=== PATIENT | female | born 1950 | race Hispanic/Latino ===

== ENCOUNTER → 2018-06-29 | Outpatient (CLI) | payer OTHER | END | disposition home or self-care (01) | LOC: OIH 10:47 | PROVIDERS: ATTEND Internal Medicine | DX: I10 Essential (primary) hypertension (principal); I70.0 Atherosclerosis of aorta; M47.815 Spondylosis without myelopathy or radiculopathy, thoracolumbar region | CPT/HCPCS: 71046 ==

== ENCOUNTER 2021-11-04 19:34 | Inpatient (IN) | payer OTHER ==
[~2021-11-04] VITALS: Ht 165.1 cm; Wt 66.8 kg
[~2021-11-04 19:34] MED LIST: AEC81 PO; ATOR20TA PO; FURO20TA6 PO; INSLAN SQ; LEVO50TA11 PO; METO25TA6 PO; PRED10TA3 PO
[2021-11-04 20:35] LABS: HEMATOCRIT 25.9 % (36-48); MEAN CORPUSCULAR HEMOGLOBIN 31.6 pg (27.0-33.0); MEAN CORPUSCULAR HGB CONC 32.4 g/dL (32.0-36.0); MEAN CORPUSCULAR VOLUME 97.4 fL (79-99); NUCLEATED RED BLOOD CELLS 0.3 % (0.0-0.19); PLATELET COUNT (AUTO) 313 K/uL (130-400); RED BLOOD CELL COUNT(AUTO) 2.66 MIL/uL (4.00-5.50); RED CELL DISTRIBUTION WIDTH 17.5 % (11.0-15.5); WHITE BLOOD COUNT (AUTO) 18.3 K/uL (4.8-10.8)
[2021-11-04 20:40] LABS: BASOPHILS % (AUTO) 0.1 % (0.0-5.0); LYMPHOCYTES % (AUTO) 3.9 % (21.0-51.0); MONOCYTES % (AUTO) 4.6 % (3.0-13.0)
[2021-11-04 20:49] LABS: ALBUMIN 1.5 g/dL (3.5-5.0); BILIRUBIN,TOTAL 0.7 mg/dL (0.2-1.0); CREATININE 2.1 mg/dL (0.5-1.5); POTASSIUM 4.5 mmol/L (3.5-5.1); TOTAL PROTEIN, SERUM 6.2 g/dL (6.0-8.3)
[2021-11-04 20:52] LABS: B-TYPE NATRIURETIC PEPTIDE 4140 pg/mL (0-100)
[2021-11-04] MEDS ORDERED: INSULIN HUMULIN R 100 UNIT/ML 3ML SQ ONE (21:30)
[2021-11-04] MEDS ORDERED: FUROSEMIDE 40MG VIAL IV ONE (21:30)
[2021-11-04] MEDS ORDERED: ZOSYN 3.375GM+NS 50ML 50 ML ONE (23:23)
[2021-11-04] MEDS ORDERED: FUROSEMIDE 40MG VIAL ONE ×2 (23:23→23:38)
[2021-11-05] MEDS ORDERED: ACYC400T20 PO (01:14)
[2021-11-05] MEDS ORDERED: [UNRECOGNIZED DRUG - CODE] MC ×2 (01:14→01:37)
[2021-11-05] MEDS ORDERED: CHOL100046 PO (01:37)
[2021-11-05] MEDS ORDERED: MAGN500C4 PO (01:37)
[2021-11-05] MEDS ORDERED: CALC-190 PO (01:37)
[2021-11-05] MEDS ORDERED: LORA10TA7 PO (01:37)
[2021-11-05] MEDS ORDERED: SULF1TAB42 PO (01:37)
[2021-11-05] MEDS ORDERED: FLUC200T12 PO (01:37)
[2021-11-05] MEDS ORDERED: RUXO10TA PO (01:37)
[2021-11-05] MEDS ORDERED: ESCI-8 PO (01:37)
[2021-11-05] MEDS ORDERED: PRED10TA23 PO (01:37)
[2021-11-05] MEDS ORDERED: FURO40TA5 PO (01:37)
[2021-11-05] MEDS ORDERED: ATOR40TA71 PO (01:37)
[2021-11-05] MEDS ORDERED: LEVO50CA4 PO (01:37)
[2021-11-05] MEDS ORDERED: POTA-202 PO (01:37)
[2021-11-05] MEDS ORDERED: DOXY50CA2 PO (01:37)
[2021-11-05] MEDS ORDERED: ACET-66 PO (01:37)
[2021-11-05] MEDS ORDERED: PANT40TA54 PO (01:37)
[2021-11-05] MEDS ORDERED: DOCU-280 PO (01:37)
[2021-11-05] MEDS ORDERED: CLONIDINE HCL 0.1 MG TABLET ONE (02:20)
[2021-11-05] MEDS: CLONIDINE HCL 0.1 MG TABLET PO PRN ×3 (02:40→17:19)
[2021-11-05 03:24] VITALS: BP 217/100
[2021-11-05] MEDS ORDERED: FUROSEMIDE 40MG VIAL IV SCH ×2 (04:15→04:45)
[2021-11-05] MEDS ORDERED: PHARMACY COMMUNICATION MISC SCH ×2 (06:30→08:00)
[2021-11-05] MEDS ORDERED: TACR0.5C12 PO (06:48)
[2021-11-05 06:50] LABS: ALBUMIN 1.6 g/dL (3.5-5.0); BILIRUBIN,TOTAL 0.7 mg/dL (0.2-1.0); CREATININE 1.9 mg/dL (0.5-1.5); POTASSIUM 5.1 mmol/L (3.5-5.1); TOTAL PROTEIN, SERUM 6.5 g/dL (6.0-8.3)
[2021-11-05] MEDS ORDERED: LORATADINE 10 MG TABLET PO PRN (07:00)
[2021-11-05] MEDS ORDERED: INSLAN SQ (07:10)
[2021-11-05] MEDS ORDERED: CITA-107 PO (07:18)
[2021-11-05 07:19] LABS: BASOPHILS % (AUTO) 0.2 % (0.0-5.0); HEMATOCRIT 27.7 % (36-48); LYMPHOCYTES % (AUTO) 7.2 % (21.0-51.0); MEAN CORPUSCULAR HEMOGLOBIN 31.9 pg (27.0-33.0); MEAN CORPUSCULAR HGB CONC 32.5 g/dL (32.0-36.0); MEAN CORPUSCULAR VOLUME 98.2 fL (79-99); MONOCYTES % (AUTO) 6.8 % (3.0-13.0); NEUTROPHILS % (AUTO) 84.4 % (40.0-77.0); NUCLEATED RED BLOOD CELLS 0.3 % (0.0-0.19); PLATELET COUNT (AUTO) 334 K/uL (130-400); RED BLOOD CELL COUNT(AUTO) 2.82 MIL/uL (4.00-5.50); RED CELL DISTRIBUTION WIDTH 17.5 % (11.0-15.5); WHITE BLOOD COUNT (AUTO) 19.4 K/uL (4.8-10.8)
[2021-11-05] MEDS ORDERED: IPRA3AMP24 IH (07:26)
[2021-11-05] MEDS: FUROSEMIDE 40MG VIAL IV SCH ×2 (07:53→20:49)
[2021-11-05 08:00] VITALS: BP 204/104
[2021-11-05] MEDS: MENTHOL TP SCH ×2 (08:00→16:00)
[2021-11-05] MEDS: INSULIN GLARGINE 100 UNITS/ML 10 ML VIAL SQ SCH ×2 (08:46→21:01)
[2021-11-05] MEDS: ACYCLOVIR 200 MG CAPSULE PO SCH ×2 (08:52→20:49)
[2021-11-05] MEDS: ASPIRIN 81 MG EC TAB PO SCH (08:53)
[2021-11-05] MEDS: CITALOPRAM 20 MG TABLET PO SCH (08:53)
[2021-11-05] MEDS: LEVOTHYROXINE 50 MCG TABLET PO SCH (08:53)
[2021-11-05] MEDS: FLUCONAZOLE 100 MG TAB PO SCH (08:53)
[2021-11-05] MEDS: PREDNISONE 20 MG TABLET PO SCH (08:53)
[2021-11-05] MEDS: HONEY 1 APPL/ML TUBE TP SCH (08:54)
[2021-11-05] MEDS ORDERED: METOPROLOL TARTRATE 25 MG TAB PO SCH (09:00)
[2021-11-05] MEDS: TACROLIMUS 0.5 MG CAPSULE PO SCH ×2 (09:27→20:54)
[2021-11-05] MEDS: JAKAFI 5 MG PO SCH ×2 (09:28→20:52)
[2021-11-05 12:00] VITALS: BP 182/99
[2021-11-05] MEDS: AMLODIPINE 5 MG TAB PO SCH (12:35)
[2021-11-05] MEDS ORDERED: [UNRECOGNIZED DRUG - REMARK] MISC SCH (13:00)
[2021-11-05] MEDS: INSULIN R PO SS1 SQ SCH ×3 (13:03→22:36)
[2021-11-05] MEDS ORDERED: MENTHOL TP (14:30)
[2021-11-05] MEDS ORDERED: 0.9%NACL 50ML 50 ML IV ONE (15:56)
[2021-11-05 16:00] VITALS: BP 178/84
[2021-11-05] MEDS: ZOSYN 3.375GM +NS 50ML IVPB SCH (16:06)
[2021-11-05 16:56] LABS: APPEARANCE,URINE CLOUDY (CLEAR); BILIRUBIN,URINE NEGATIVE (NEGATIVE); COLOR,URINE YELLOW (YELLOW); GLUCOSE, URINE (UA) 500 mg/dL (NEGATIVE); KETONES,URINE NEGATIVE (NEGATIVE); LEUKOCYTE ESTERASE ,URINE LARGE (NEGATIVE); NITRATE,URINE NEGATIVE (NEGATIVE); OCCULT BLOOD,URINE MODERATE (NEGATIVE); PROTEIN,URINE NEGATIVE (NEGATIVE); UROBILINOGEN,URINE 0.2 mg/dL (0.2-1.0)
[2021-11-05 17:24] LABS: YEAST,URINE BUDDING Moderate /HPF (None Seen)
[2021-11-05 17:25] LABS: BACTERIA,URINE Few /HPF (None Seen); SQUAMOUS EPITHELIAL CELL,UR Rare /HPF (0-2)
[2021-11-05 19:12] VITALS: BP 154/76
[2021-11-05] MEDS: CARVEDILOL 3.125 MG TABLET PO SCH (20:49)
[2021-11-05] MEDS: ATORVASTATIN 40 MG TABLET PO SCH (20:49)
[2021-11-06] VITALS (7 sets, daily range): BP systolic 145–167; BP diastolic 65–94
[2021-11-06] MEDS: MENTHOL TP SCH
[2021-11-06] MEDS: ZOSYN 3.375GM +NS 50ML IVPB SCH ×2 (02:17→16:27)
[2021-11-06 05:01] LABS: HEMATOCRIT 26.6 % (36-48); MEAN CORPUSCULAR HEMOGLOBIN 32.5 pg (27.0-33.0); MEAN CORPUSCULAR HGB CONC 33.8 g/dL (32.0-36.0); NUCLEATED RED BLOOD CELLS 0.3 % (0.0-0.19); RED BLOOD CELL COUNT(AUTO) 2.77 MIL/uL (4.00-5.50); RED CELL DISTRIBUTION WIDTH 17.1 % (11.0-15.5); WHITE BLOOD COUNT (AUTO) 17.6 K/uL (4.8-10.8)
[2021-11-06 05:29] LABS: ALBUMIN 1.6 g/dL (3.5-5.0); BILIRUBIN,TOTAL 0.6 mg/dL (0.2-1.0); CREATININE 1.8 mg/dL (0.5-1.5); MAGNESIUM 1.5 mg/dL (1.80-2.40); PHOSPHORUS 3.8 mg/dL (2.5-4.9); POTASSIUM 3.7 mmol/L (3.5-5.1); THYROID STIMULATING HORMONE 1.22 uIU/mL (0.36-3.74); TOTAL PROTEIN, SERUM 6.1 g/dL (6.0-8.3); URIC ACID 4.6 mg/dL (2.6-7.2)
[2021-11-06 05:44] LABS: % IRON SATURATION 43.1 % (22-44)
[2021-11-06] MEDS ORDERED: MAGNESIUM 2GM PREMIX 50ML 50 ML IV PRN (07:00)
[2021-11-06] MEDS: JAKAFI 5 MG PO SCH ×2 (09:00→20:43)
[2021-11-06] MEDS ORDERED: FUROSEMIDE 40 MG TABLET PO SCH (09:00)
[2021-11-06] MEDS: INSULIN R PO SS1 SQ SCH ×4 (09:27→20:29)
[2021-11-06] MEDS: INSULIN GLARGINE 100 UNITS/ML 10 ML VIAL SQ SCH ×2 (09:27→20:30)
[2021-11-06] MEDS: ACYCLOVIR 200 MG CAPSULE PO SCH ×2 (09:30→20:25)
[2021-11-06] MEDS: CITALOPRAM 20 MG TABLET PO SCH (09:30)
[2021-11-06] MEDS: ASPIRIN 81 MG EC TAB PO SCH (09:30)
[2021-11-06] MEDS: FLUCONAZOLE 100 MG TAB PO SCH (09:30)
[2021-11-06] MEDS: LEVOTHYROXINE 50 MCG TABLET PO SCH (09:30)
[2021-11-06] MEDS: Vitamin B Complex/Vit C/Folic Acid PO SCH (09:31)
[2021-11-06] MEDS: TACROLIMUS 0.5 MG CAPSULE PO SCH ×2 (09:31→20:24)
[2021-11-06] MEDS: AMLODIPINE 5 MG TAB PO SCH (09:31)
[2021-11-06] MEDS: CARVEDILOL 3.125 MG TABLET PO SCH ×2 (09:31→20:26)
[2021-11-06] MEDS: FUROSEMIDE 40MG VIAL IV SCH ×2 (09:32→20:27)
[2021-11-06] MEDS: PREDNISONE 20 MG TABLET PO SCH (09:32)
[2021-11-06] MEDS: HONEY 1 APPL/ML TUBE TP SCH (09:49)
[2021-11-06] MEDS: ATORVASTATIN 40 MG TABLET PO SCH (20:26)
[2021-11-07] MEDS: ZOSYN 3.375GM +NS 50ML IVPB SCH ×2 (01:53→14:03)
[2021-11-07 03:52] VITALS: BP 148/78
[2021-11-07] MEDS: INSULIN R PO SS1 SQ SCH ×3 (06:46→17:22)
[2021-11-07] MEDS: INSULIN GLARGINE 100 UNITS/ML 10 ML VIAL SQ SCH (06:47)
[2021-11-07 08:20] VITALS: BP 160/68
[2021-11-07] MEDS: ASPIRIN 81 MG EC TAB PO SCH (08:43)
[2021-11-07] MEDS: TACROLIMUS 0.5 MG CAPSULE PO SCH (08:43)
[2021-11-07] MEDS: CARVEDILOL 3.125 MG TABLET PO SCH (08:43)
[2021-11-07] MEDS: PREDNISONE 20 MG TABLET PO SCH (08:44)
[2021-11-07] MEDS: ACYCLOVIR 200 MG CAPSULE PO SCH (08:44)
[2021-11-07] MEDS: Vitamin B Complex/Vit C/Folic Acid PO SCH (08:44)
[2021-11-07] MEDS: CITALOPRAM 20 MG TABLET PO SCH (08:44)
[2021-11-07] MEDS: FLUCONAZOLE 100 MG TAB PO SCH (08:44)
[2021-11-07] MEDS: AMLODIPINE 5 MG TAB PO SCH (08:44)
[2021-11-07] MEDS: LEVOTHYROXINE 50 MCG TABLET PO SCH (08:44)
[2021-11-07] MEDS: HONEY 1 APPL/ML TUBE TP SCH (08:45)
[2021-11-07] MEDS: FUROSEMIDE 40MG VIAL IV SCH (08:46)
[2021-11-07] MEDS: JAKAFI 5 MG PO SCH (08:46)
[2021-11-07] MEDS: MENTHOL TP SCH (08:47)
[2021-11-07 09:17] LABS: CREATININE 1.8 mg/dL (0.5-1.5); POTASSIUM 4.2 mmol/L (3.5-5.1)
[2021-11-07 12:35] VITALS: BP 175/76
[2021-11-07 16:31] VITALS: BP 141/74
== END 2021-11-07 20:30 | DRG 871 ==
LOC: EDH 19:34 → EDHIP 22:00 → 2AH 11-05 02:59
PROVIDERS: ADMIT Internal Medicine; ATTEND Internal Medicine
PROC: 5A09357 Assistance with Respiratory Ventilation, Less than 24 Consecutive Hours, Continuous Positive Airway Pressure (ICD-10-PCS; principal; 2021-11-05)
DX: A41.9 Sepsis, unspecified organism (principal); I50.43 Acute on chronic combined systolic (congestive) and diastolic (congestive) heart failure; J96.21 Acute and chronic respiratory failure with hypoxia; J11.00 Influenza due to unidentified influenza virus with unspecified type of pneumonia; I13.0 Hypertensive heart and chronic kidney disease with heart failure and stage 1 through stage 4 chronic kidney disease, or unspecified chronic kidney disease; N17.9 Acute kidney failure, unspecified; C95.90 Leukemia, unspecified not having achieved remission; D84.9 Immunodeficiency, unspecified; N13.6 Pyonephrosis; N39.0 Urinary tract infection, site not specified; Z16.12 Extended spectrum beta lactamase (ESBL) resistance; Z94.81 Bone marrow transplant status; Z20.822 Contact with and (suspected) exposure to COVID-19; I44.7 Left bundle-branch block, unspecified; I16.0 Hypertensive urgency; E11.65 Type 2 diabetes mellitus with hyperglycemia; E11.22 Type 2 diabetes mellitus with diabetic chronic kidney disease; C50.919 Malignant neoplasm of unspecified site of unspecified female breast; E03.9 Hypothyroidism, unspecified; N18.9 Chronic kidney disease, unspecified; E87.6 Hypokalemia; E78.5 Hyperlipidemia, unspecified; I45.4 Nonspecific intraventricular block; K52.9 Noninfective gastroenteritis and colitis, unspecified; R79.89 Other specified abnormal findings of blood chemistry
CPT/HCPCS: 36415; 71045; 71250; 76770; 80048; 80053; 81001; 82550; 82728; 82948; 83540; 83550; 83605; 83735; 83874; 83880; 84100; 84443; 84484; 84550; 85025; 85027; 85378; 87040; 87077; 87088; 87186; 87635; 93005; 93306; 93356; 93971; 94660; 99291; G0378; J1815; J1940; J2543; J3475; J7507

== ENCOUNTER 2022-01-07 17:36 | Inpatient (IN) | payer OTHER ==
[~2022-01-07] VITALS: Ht 157.5 cm; Wt 59.4 kg
[~2022-01-07 17:36] MED LIST changes: +ACET-66 PO; +ACYC400T20 PO; -ATOR20TA PO; +ATOR40TA71 PO; +CACL 1GM SYG IVP ONE; +CALC-190 PO; +CHOL100046 PO; +CITA-107 PO; +DOCU-280 PO; +DOXY50CA2 PO; +FLUC200T12 PO; +FURO40TA5 PO; +IPRA3AMP24 IH; +LEVO50CA4 PO; -LEVO50TA11 PO; +LORA10TA7 PO; +MAGN500C4 PO; -METO25TA6 PO; +PANT40TA54 PO; +POTA-202 PO; +PRED10TA23 PO; -PRED10TA3 PO; +RUXO10TA PO; +SULF1TAB42 PO; +TACR0.5C12 PO
[2022-01-07 17:53] LABS: ABG BASE EXCESS -3.9 mmol/L (-2.0-3.0); ABG HCO3 21.7 mmol/L (21.0-28.0); ABG OXYGEN SATURATION 99.5 % (95.0-99.0); ABG PCO2 42 mmHg (32-45)
[2022-01-07] MEDS ORDERED: CALCIUM GLUC 1GM/10ML VIAL ONE (17:59)
[2022-01-07] MEDS ORDERED: CALCIUM GLUC 1GM 1 GM in 0.9%NACL 100ML 100 ML IV ONE (18:00)
[2022-01-07] MEDS ORDERED: 0.9% NACL 500ML IV.SOLN 500 ML IV ONE (18:00)
[2022-01-07] MEDS ORDERED: INSULIN HUMULIN R 100 UNIT/ML 3ML IV ONE (18:00)
[2022-01-07] MEDS ORDERED: NA ZIRCON CYCLOSIL(LOKELMA 10GM) PO ONE ×2 (18:00→23:00)
[2022-01-07 18:11] LABS: BASOPHILS % (AUTO) 0.1 % (0.0-5.0); MEAN CORPUSCULAR HEMOGLOBIN 32.3 pg (27.0-33.0); MEAN CORPUSCULAR HGB CONC 32.6 g/dL (32.0-36.0); MONOCYTES % (AUTO) 4.6 % (3.0-13.0); NEUTROPHILS % (AUTO) 90.4 % (40.0-77.0); NUCLEATED RED BLOOD CELLS 0.5 % (0.0-0.19); PLATELET COUNT (AUTO) 65 K/uL (130-400); RED BLOOD CELL COUNT(AUTO) 1.92 MIL/uL (4.00-5.50); RED CELL DISTRIBUTION WIDTH 21.7 % (11.0-15.5); WHITE BLOOD COUNT (AUTO) 15.2 K/uL (4.8-10.8)
[2022-01-07 18:33] LABS: ALBUMIN 1.5 g/dL (3.5-5.0); CREATININE 5.9 mg/dL (0.5-1.5); MAGNESIUM 4.2 mg/dL (1.80-2.40); PHOSPHORUS 8.8 mg/dL (2.5-4.9); TOTAL PROTEIN, SERUM 5.7 g/dL (6.0-8.3)
[2022-01-07 18:38] LABS: POTASSIUM 8.1 mmol/L (3.5-5.1)
[2022-01-07 18:53] LABS: B-TYPE NATRIURETIC PEPTIDE 3550 pg/mL (0-100)
[2022-01-07] MEDS ORDERED: 0.9%NACL 1000ML 1,000 ML IV ONE (19:00)
[2022-01-07] MEDS: MEROPENEM 1 GM VIAL IVP SCH (19:20)
[2022-01-07 19:31] LABS: APPEARANCE,URINE TURBID (CLEAR); BILIRUBIN,URINE SMALL (NEGATIVE); COLOR,URINE Amber (YELLOW); GLUCOSE, URINE (UA) 250 mg/dL (NEGATIVE); KETONES,URINE NEGATIVE (NEGATIVE); LEUKOCYTE ESTERASE ,URINE LARGE (NEGATIVE); NITRATE,URINE NEGATIVE (NEGATIVE); OCCULT BLOOD,URINE LARGE (NEGATIVE); PROTEIN,URINE 100 mg/dL (NEGATIVE); UROBILINOGEN,URINE 0.2 mg/dL (0.2-1.0)
[2022-01-07 19:35] LABS: BACTERIA,URINE Many /HPF (None Seen); RBC,URINE >100 /HPF (0-1); SQUAMOUS EPITHELIAL CELL,UR None Seen /HPF (0-2); WBC,URINE >100 /HPF (0-1)
[2022-01-07 19:43] LABS: CHLORIDE,URINE RANDOM 68 mmol/L (110-250); CREATININE,URINE RANDOM 27 mg/dL (30-135); POTASSIUM,URINE RANDOM 32 mmol/L (25-125); SODIUM,URINE RANDOM 81 mmol/l (40-220)
[2022-01-07] MEDS ORDERED: PRED50TA2 PO (21:38)
[2022-01-07] MEDS ORDERED: ONDA4TAB10 PO (21:38)
[2022-01-07] MEDS ORDERED: FOLI1TAB85 PO (21:38)
[2022-01-07] MEDS ORDERED: AMLO-257 PO (21:38)
[2022-01-07] MEDS ORDERED: ESCI-8 PO (21:38)
[2022-01-07] MEDS ORDERED: CARV3.12 PO (21:38)
[2022-01-07] MEDS ORDERED: KAYEXALATE 15GM/60ML PO ONE (22:00)
[2022-01-07] MEDS ORDERED: ALBUTEROL 0.083% 2.5 MG/3 ML INH IH ONE ×3 (22:00→22:30)
[2022-01-07] MEDS ORDERED: SODIUM BICARB 50MEQ 50ML VIAL IV ONE (22:00)
[2022-01-07 22:15] LABS: CREATININE 5.5 mg/dL (0.5-1.5)
[2022-01-07 22:27] LABS: POTASSIUM 6.9 mmol/L (3.5-5.1)
[2022-01-07] MEDS ORDERED: CALCIUM GLUC 1GM 1 GM in 0.9%NACL 100ML 100 ML IV SCH (22:30)
[2022-01-08] VITALS (36 sets, daily range): BP systolic 76–150; BP diastolic 28–93
[2022-01-08] MEDS ORDERED: NOREPINEPHRIN 4MG/NS 250ML 250 ML IV ONE (00:15)
[2022-01-08] MEDS: NOREPINEPHRIN 4MG/NS 250ML 250 ML IV SCH ×2 (00:25→11:13)
[2022-01-08 04:05] LABS: CREATININE 5.6 mg/dL (0.5-1.5)
[2022-01-08 04:07] LABS: POTASSIUM 7.4 mmol/L (3.5-5.1)
[2022-01-08] MEDS ORDERED: NA ZIRCON CYCLOSIL(LOKELMA 10GM) PO ONE (05:00)
[2022-01-08 07:59] LABS: CREATININE 5.7 mg/dL (0.5-1.5)
[2022-01-08 08:09] LABS: POTASSIUM 7.7 mmol/L (3.5-5.1)
[2022-01-08] MEDS ORDERED: DEXTROSE 50%-WATER 50 ML DISP.SYRIN IV ONE ×2 (09:00→20:30)
[2022-01-08] MEDS ORDERED: ONDANSETRON 4MG INJ IVP PRN (09:00)
[2022-01-08] MEDS ORDERED: INSULIN HUMULIN R 100 UNIT/ML 3ML IV ONE ×2 (09:00→20:30)
[2022-01-08] MEDS ORDERED: KAYEXALATE 15GM/60ML PO PRN (09:00)
[2022-01-08] MEDS ORDERED: ACETAMINOPHEN 325 MG TAB PO PRN (09:00)
[2022-01-08] MEDS ORDERED: HYDRALAZINE 20MG/ML VIAL IV PRN (09:00)
[2022-01-08] MEDS ORDERED: SODIUM BICARBONATE 650 MG TAB PO PRN (09:00)
[2022-01-08] MEDS ORDERED: LABETALOL 20MG SYG IV PRN (09:00)
[2022-01-08] MEDS ORDERED: SODIUM BICARB 50MEQ 50ML VIAL IV SCH (09:00)
[2022-01-08] MEDS ORDERED: ALBUTEROL 0.083% 2.5 MG/3 ML INH IH PRN (09:00)
[2022-01-08] MEDS ORDERED: KAYEXALATE 15GM/60ML PO ONE (09:00)
[2022-01-08 11:13] LABS: CREATININE 5.9 mg/dL (0.5-1.5)
[2022-01-08 11:17] LABS: POTASSIUM 6.6 mmol/L (3.5-5.1)
[2022-01-08] MEDS: INSULIN HUMULIN R 100 UNIT/ML 3ML SQ SCH ×2 (11:17→17:12)
[2022-01-08 12:18] LABS: MEAN CORPUSCULAR HGB CONC 31.5 g/dL (32.0-36.0); MEAN CORPUSCULAR VOLUME 101.7 fL (79-99); NUCLEATED RED BLOOD CELLS 0.6 % (0.0-0.19); PLATELET COUNT (AUTO) 60 K/uL (130-400); RED BLOOD CELL COUNT(AUTO) 1.81 MIL/uL (4.00-5.50); WHITE BLOOD COUNT (AUTO) 14.1 K/uL (4.8-10.8)
[2022-01-08 12:39] LABS: HEMATOCRIT 18.4 % (36-48)
[2022-01-08] MEDS: SODIUM BICARBONATE 650 MG TAB PO SCH ×2 (13:08→20:34)
[2022-01-08] MEDS ORDERED: NA ZIRCON CYCLOSIL(LOKELMA 10GM) PO SCH (13:30)
[2022-01-08 13:37] LABS: BAND NEUTROPHILS % (MANUAL) 9 % (0-2); LYMPHOCYTES % (MANUAL) 4 % (22-44); MAN.DIFF COMMENT-IMPRESSION MANUAL DIFFERENTIAL; MONOCYTES % (MANUAL) 3 % (2-9); SEGMENTED NEUTROPHILS % 84 % (40-70)
[2022-01-08 13:38] LABS: PLATELET MORPHOLOGY COMMENT DECREASED
[2022-01-08] MEDS ORDERED: HYDROCORTISONE SOD SUCCINATE 100 MG/2 ML VIAL IV SCH (14:00)
[2022-01-08] MEDS ORDERED: PHARMACY COMMUNICATION MISC SCH (14:00)
[2022-01-08] MEDS ORDERED: SODIUM CHLORIDE 7% INHALATION 4 ML VIAL.NEB IH ONE ×2 (14:39→18:16)
[2022-01-08] MEDS: 0.9%NACL 1000ML 1,000 ML IV SCH (14:47)
[2022-01-08 15:40] LABS: CREATININE 5.7 mg/dL (0.5-1.5)
[2022-01-08 15:42] LABS: POTASSIUM 6.7 mmol/L (3.5-5.1)
[2022-01-08] MEDS: SODIUM BICARB 50MEQ 50ML VIAL 150 MEQ in DEXTROSE 5%-WATER 1,000 ML IV SCH (17:12)
[2022-01-08 19:13] LABS: HEMATOCRIT 15.7 % (36-48)
[2022-01-08 19:35] LABS: CREATININE 5.7 mg/dL (0.5-1.5)
[2022-01-08 19:37] LABS: POTASSIUM 6.4 mmol/L (3.5-5.1)
[2022-01-08] MEDS: MEROPENEM 1 GM VIAL IVP SCH (19:55)
[2022-01-08] MEDS ORDERED: ALBUTEROL 0.083% 2.5 MG/3 ML INH IH ONE (20:30)
[2022-01-08] MEDS ORDERED: FUROSEMIDE 40MG VIAL IV ONE (20:30)
[2022-01-08] MEDS ORDERED: CALCIUM GLUC 1GM/10ML VIAL IV ONE (20:30)
[2022-01-08] MEDS: HYDROCORTISONE SOD SUCCINATE 100 MG/2 ML VIAL IV SCH (20:38)
[2022-01-08 22:15] LABS: ABG BASE EXCESS -1.1 mmol/L (-2.0-3.0); ABG HCO3 23.5 mmol/L (21.0-28.0); ABG OXYGEN SATURATION 98.6 % (95.0-99.0); ABG PCO2 38 mmHg (32-45)
[2022-01-08] MEDS ORDERED: DOPAMINE HCL 400 MG/D5%-WATER 250 ML IV STA (22:24)
[2022-01-08] MEDS ORDERED: INSULIN HUMULIN R 100 UNIT/ML 3ML SQ ONE (22:50)
[2022-01-08 23:12] LABS: CREATININE 5.6 mg/dL (0.5-1.5); POTASSIUM 5.9 mmol/L (3.5-5.1)
[2022-01-08] MEDS: LACTULOSE 20 GM/30 ML UDCUP PO PRN (23:44)
[2022-01-09] VITALS (91 sets, daily range): BP systolic 94–167; BP diastolic 29–91
[2022-01-09] MEDS: HYDROCORTISONE SOD SUCCINATE 100 MG/2 ML VIAL IV SCH ×4 (01:11→16:55)
[2022-01-09] MEDS: INSULIN HUMULIN R 100 UNIT/ML 3ML SQ SCH ×4 (01:15→16:56)
[2022-01-09 02:11] LABS: HEMATOCRIT 25.4 % (36-48); MEAN CORPUSCULAR HEMOGLOBIN 33.3 pg (27.0-33.0); MEAN CORPUSCULAR HGB CONC 33.5 g/dL (32.0-36.0); MEAN CORPUSCULAR VOLUME 99.6 fL (79-99); NUCLEATED RED BLOOD CELLS 0.5 % (0.0-0.19); PLATELET COUNT (AUTO) 66 K/uL (130-400); RED BLOOD CELL COUNT(AUTO) 2.55 MIL/uL (4.00-5.50); RED CELL DISTRIBUTION WIDTH 16.9 % (11.0-15.5); WHITE BLOOD COUNT (AUTO) 14.5 K/uL (4.8-10.8)
[2022-01-09] MEDS ORDERED: SODIUM CHLORIDE 7% INHALATION 4 ML VIAL.NEB IH ONE (02:16)
[2022-01-09 02:17] LABS: CREATININE 5.4 mg/dL (0.5-1.5); POTASSIUM 5.8 mmol/L (3.5-5.1)
[2022-01-09 05:53] LABS: BASOPHILS % (AUTO) 0.3 % (0.0-5.0); HEMATOCRIT 22.8 % (36-48); LYMPHOCYTES % (AUTO) 2.6 % (21.0-51.0); MEAN CORPUSCULAR HEMOGLOBIN 33.3 pg (27.0-33.0); MEAN CORPUSCULAR HGB CONC 34.2 g/dL (32.0-36.0); MEAN CORPUSCULAR VOLUME 97.4 fL (79-99); MONOCYTES % (AUTO) 1.7 % (3.0-13.0); NEUTROPHILS % (AUTO) 94.4 % (40.0-77.0); NUCLEATED RED BLOOD CELLS 0.4 % (0.0-0.19); PLATELET COUNT (AUTO) 53 K/uL (130-400); RED BLOOD CELL COUNT(AUTO) 2.34 MIL/uL (4.00-5.50); WHITE BLOOD COUNT (AUTO) 15.1 K/uL (4.8-10.8)
[2022-01-09] MEDS: LACTULOSE 20 GM/30 ML UDCUP PO PRN (06:10)
[2022-01-09 06:19] LABS: ALBUMIN 1.6 g/dL (3.5-5.0); CREATININE 5.3 mg/dL (0.5-1.5); MAGNESIUM 3.4 mg/dL (1.80-2.40); PHOSPHORUS 7.1 mg/dL (2.5-4.9); POTASSIUM 5.1 mmol/L (3.5-5.1); THYROID STIMULATING HORMONE 0.25 uIU/mL (0.36-3.74); TOTAL PROTEIN, SERUM 5.3 g/dL (6.0-8.3)
[2022-01-09 07:01] LABS: ABG BASE EXCESS 1.5 mmol/L (-2.0-3.0); ABG HCO3 26.3 mmol/L (21.0-28.0); ABG OXYGEN SATURATION 98.6 % (95.0-99.0); ABG PCO2 42 mmHg (32-45)
[2022-01-09] MEDS: PANTOPRAZOLE 40 MG/VIAL IVP SCH (08:02)
[2022-01-09] MEDS: SODIUM BICARB 50MEQ 50ML VIAL 150 MEQ in DEXTROSE 5%-WATER 1,000 ML IV SCH (08:02)
[2022-01-09] MEDS: LACTULOSE 20 GM/30 ML UDCUP PO SCH ×3 (08:02→19:56)
[2022-01-09] MEDS: SODIUM BICARBONATE 650 MG TAB PO SCH ×2 (08:03→19:56)
[2022-01-09] MEDS: 0.9%NACL 1000ML 1,000 ML IV SCH (08:06)
[2022-01-09 11:04] LABS: HEMATOCRIT 22.2 % (36-48)
[2022-01-09 11:13] LABS: CREATININE 5.5 mg/dL (0.5-1.5); POTASSIUM 4.5 mmol/L (3.5-5.1)
[2022-01-09 18:54] LABS: HEMATOCRIT 25.3 % (36-48)
[2022-01-09 19:05] LABS: CREATININE 5.3 mg/dL (0.5-1.5); POTASSIUM 3.5 mmol/L (3.5-5.1)
[2022-01-09] MEDS: MEROPENEM 1 GM VIAL IVP SCH (19:56)
[2022-01-09] MEDS ORDERED: HYDROMORPHONE 0.5 MG SYG (0.5MG/0.5ML) IVP PRN (21:30)
[2022-01-09] MEDS: HYDROMORPHONE 0.5 MG SYG (0.5MG/0.5ML) IVP PRN (21:44)
[2022-01-09 23:14] LABS: HEMATOCRIT 24.9 % (36-48)
[2022-01-09 23:21] LABS: CREATININE 5.2 mg/dL (0.5-1.5); POTASSIUM 3.4 mmol/L (3.5-5.1)
[2022-01-10] VITALS (49 sets, daily range): BP systolic 94–181; BP diastolic 43–111
[2022-01-10] MEDS: HYDROCORTISONE SOD SUCCINATE 100 MG/2 ML VIAL IV SCH ×4 (00:33→17:42)
[2022-01-10] MEDS: INSULIN HUMULIN R 100 UNIT/ML 3ML SQ SCH ×4 (00:35→17:46)
[2022-01-10] MEDS: LACTULOSE 20 GM/30 ML UDCUP PO SCH ×4 (01:11→20:12)
[2022-01-10] MEDS: 0.9%NACL 1000ML 1,000 ML IV SCH (02:47)
[2022-01-10] MEDS: HYDROMORPHONE 0.5 MG SYG (0.5MG/0.5ML) IVP PRN (05:23)
[2022-01-10 06:06] LABS: BASOPHILS % (AUTO) 0.2 % (0.0-5.0); EOSINOPHILS % (AUTO) 0.3 % (0.0-8.0); HEMATOCRIT 26.9 % (36-48); LYMPHOCYTES % (AUTO) 2.6 % (21.0-51.0); MEAN CORPUSCULAR HEMOGLOBIN 33.5 pg (27.0-33.0); MEAN CORPUSCULAR HGB CONC 33.8 g/dL (32.0-36.0); MEAN CORPUSCULAR VOLUME 98.9 fL (79-99); NEUTROPHILS % (AUTO) 93.7 % (40.0-77.0); NUCLEATED RED BLOOD CELLS 0.2 % (0.0-0.19); PLATELET COUNT (AUTO) 36 K/uL (130-400); RED BLOOD CELL COUNT(AUTO) 2.72 MIL/uL (4.00-5.50); RED CELL DISTRIBUTION WIDTH 18.3 % (11.0-15.5); WHITE BLOOD COUNT (AUTO) 18.2 K/uL (4.8-10.8)
[2022-01-10 06:19] LABS: INR 1.02 (0.85-1.15); PROTHROMBIN TIME 11.1 SEC (9.6-11.6)
[2022-01-10 06:32] LABS: ALBUMIN 1.7 g/dL (3.5-5.0); CREATININE 5.2 mg/dL (0.5-1.5); POTASSIUM 3.4 mmol/L (3.5-5.1); TOTAL PROTEIN, SERUM 5.4 g/dL (6.0-8.3)
[2022-01-10] MEDS: NALOXONE HCL 0.4 MG/1 ML ML IVP PRN ×4 (08:30→15:41)
[2022-01-10] MEDS: PANTOPRAZOLE 40 MG/VIAL IVP SCH (08:30)
[2022-01-10] MEDS: MEROPENEM 1 GM VIAL IVP SCH ×2 (08:41→20:12)
[2022-01-10] MEDS ORDERED: CARVEDILOL 3.125 MG TABLET PO SCH (21:00)
[2022-01-10] MEDS ORDERED: AMLODIPINE 5 MG TAB PO SCH (21:00)
[2022-01-11 00:01] VITALS: BP 129/67
[2022-01-11] MEDS: HYDROCORTISONE SOD SUCCINATE 100 MG/2 ML VIAL IV SCH (00:28)
[2022-01-11] MEDS: INSULIN HUMULIN R 100 UNIT/ML 3ML SQ SCH (00:30)
[2022-01-11 00:31] VITALS: BP 129/65
== END 2022-01-11 01:53 | disposition short-term general hospital (02) | DRG 871 ==
LOC: EDH 17:36 → EDHIP 19:25 → 2BH 01-08 03:42
PROVIDERS: ADMIT Internal Medicine; ATTEND Internal Medicine
PROC: 02HV33Z Insertion of Infusion Device into Superior Vena Cava, Percutaneous Approach (ICD-10-PCS; 2022-01-07)
PROC: 30233N1 Transfusion of Nonautologous Red Blood Cells into Peripheral Vein, Percutaneous Approach (ICD-10-PCS; principal; 2022-01-08)
DX: A41.9 Sepsis, unspecified organism (principal); G93.41 Metabolic encephalopathy; J96.01 Acute respiratory failure with hypoxia; R65.21 Severe sepsis with septic shock; N17.9 Acute kidney failure, unspecified; I13.0 Hypertensive heart and chronic kidney disease with heart failure and stage 1 through stage 4 chronic kidney disease, or unspecified chronic kidney disease; E46 Unspecified protein-calorie malnutrition; Z16.24 Resistance to multiple antibiotics; I50.42 Chronic combined systolic (congestive) and diastolic (congestive) heart failure; N12 Tubulo-interstitial nephritis, not specified as acute or chronic; E87.5 Hyperkalemia; D64.9 Anemia, unspecified; E11.22 Type 2 diabetes mellitus with diabetic chronic kidney disease; E83.52 Hypercalcemia; D69.6 Thrombocytopenia, unspecified; E03.9 Hypothyroidism, unspecified; E78.5 Hyperlipidemia, unspecified; E88.09 Other disorders of plasma-protein metabolism, not elsewhere classified; N18.9 Chronic kidney disease, unspecified; Z20.822 Contact with and (suspected) exposure to COVID-19; Z68.24 Body mass index [BMI] 24.0-24.9, adult; Z79.899 Other long term (current) drug therapy; Z90.11 Acquired absence of right breast and nipple; Z85.3 Personal history of malignant neoplasm of breast; R62.7 Adult failure to thrive; E86.0 Dehydration; E11.65 Type 2 diabetes mellitus with hyperglycemia; B96.20 Unspecified Escherichia coli [E. coli] as the cause of diseases classified elsewhere; R74.01 Elevation of levels of liver transaminase levels
CPT/HCPCS: 36415; 36600; 51702; 71045; 74018; 76705; 76770; 80048; 80053; 81001; 82010; 82140; 82435; 82436; 82533; 82550; 82570; 82803; 82947; 82948; 83010; 83540; 83550; 83605; 83615; 83735; 83880; 83935; 84100; 84132; 84133; 84145; 84295; 84300; 84443; 84484; 85014; 85018; 85025; 85027; 85045; 85610; 86850; 86900; 86901; 86923; 87040; 87077; 87088; 87186; 87635; 93005; 94640; 99291; C9113; G0378; J0610; J1170; J1265; J1720; J1815; J1940; J2185; J2310; J3490; J7030; J7040; J7070; P9016